=== PATIENT | male | born 1960 | race Caucasian/White ===

== ENCOUNTER 2018-06-06 17:20 | Emergency (ER) | payer BC, OTHER ==
[2018-06-06] MEDS ORDERED: Sodium Chloride 0.9% 1,000 ML IV ONE (17:27)
[2018-06-06] MEDS ORDERED: HYDROmorphone 0.5 MG/0.5 ML SYRINGE IVPUSH STA ×2 (17:29→18:44)
[2018-06-06] MEDS ORDERED: Ondansetron 4 MG/2 ML SDV IVPUSH ONE (17:30)
--- NOTE | 2018-06-06 17:32 | EDM.PDOC ---
ED HPI GENERAL MEDICAL PROBLEM - General Chief Complaint: Trauma Stated Complaint: SHOULDER INJURY Time Seen by Provider: 06/06/18 17:20 Source of Information: Reports: Patient, Significant Other (Girlfriend) History Limitations: Reports: No Limitations - History of Present Illness INITIAL COMMENTS - FREE TEXT/NARRATIVE: The patient states that he fell approximately 9 feet, off his roof onto a dirt surface, just prior to arrival. His fall was not witnessed, but the patient states that he was not strike his head or fall unconscious. He presents with a complaint of pain to his left shoulder and scapular region only. He denies injury elsewhere, although an abrasion over his epigastrium is noted. Treatments SHOE LAY OUT PLANNER: Reports: Other (see below) Other Treatments SHOE LAY OUT PLANNER: none Left Shoulder Pain Score (Numeric/FACES): 10 - Related Data Allergies Allergy/AdvReac Type Severity Reaction Status Date / Time No Known Allergies Allergy Verified 12/25/14 14:43 Home Meds: Home Meds Fenofibrate 160 mg PO DAILY 06/20/14 [History] Nebivolol [Bystolic] 5 mg PO DAILY 06/20/14 [History] Gemfibrozil 600 mg PO DAILY 06/06/18 [History] Sertraline [Zoloft] 100 mg PO DAILY 06/06/18 [History] metFORMIN [Glucophage XR] 500 mg PO BID 06/06/18 [History] Review of Systems - Review of Systems Review Of Systems: ROS reveals no pertinent complaints other than HPI. ED EXAM, GENERAL - Physical Exam Exam: See Below Exam Limited By: No Limitations General Appearance: Alert, WD/WN, Moderate Distress (left shoulder pain) Eye Exam: Bilateral Eye: EOMI, Normal Inspection Ears: Normal External Exam, Hearing Grossly Normal Nose: Normal Inspection Throat/Mouth: Normal Inspection, Normal Lips, Normal Voice, No Airway Compromise Head: Atraumatic, Normocephalic Neck: Normal Inspection, Supple, Non-Tender, Full Range of Motion Respiratory/Chest: No Respiratory Distress, Lungs Clear, Normal Breath Sounds, No Accessory Muscle Use, Chest Non-Tender Cardiovascular: Normal Peripheral Pulses, Regular Rate, Rhythm, No Edema, No Gallop, No JVD, No Murmur, No Rub Peripheral Pulses: 4+: Radial (L), Radial (R) GI/Abdominal: Normal Bowel Sounds, Soft, Non-Tender, No Organomegaly, No Distention, No Abnormal Bruit, No Mass, Other (Linear abrasions over the patient 's epigastrium. Nontender abdomen.) (Male) Exam: Deferred Rectal (Males) Exam: Deferred Back Exam: Normal Inspection, Full Range of Motion, NT Extremities: Normal Capillary Refill, Other (Deformity of the left shoulder, consistent with anterior dislocation. No other visible abnormalities, such as swelling, erythema, ecchymosis, or abrasion. No tenderness to palpation of the left scapula. Neurovascular status of the left upper extremity is intact.) Neurological: Alert, Oriented, CN II-XII Intact, Normal Cognition, Normal Gait ( walked into ED), Normal Reflexes, No Motor/Sensory Deficits Psychiatric: Anxious Skin Exam: Warm, Dry, Intact, Normal Color, No Rash ED TRAUMA PROCEDURES - Joint Reduction Site: Shoulder (L) Sedation: Conscious Sedation (Propfol, per Anesthesia) Pre-Procedure NV Status: Normal Post-Procedure NV Status: Normal Technique: Traction/Counter Traction Number of Attempts: 1 Post-Reduction Imaging: Completely Reduced, Fracture Seen (Hill-Sachs) Joint Reduction Complications: No Course - Vital Signs Last Recorded V/S: Last Vital Signs Temp 36.8 C 06/06/18 19:27 Pulse 59 L 06/06/18 19:27 Resp 20 06/06/18 19:27 BP 117/114 H 06/06/18 19:27 Pulse Ox 94 L 06/06/18 19:27 - Orders/Labs/Meds Labs: Laboratory Tests 06/06/18 06/06/18 06/06/18 Range/Units 17:35 17:35 17:35 WBC 12.55 H (4.23-9.07) K/mm3 RBC 4.85 (4.63-6.08) M/mm3 Hgb 14.4 (13.7-17.5) gm/L Hct 43.4 (40.1-51.0) % MCV 89.5 (79.0-92.2) fl MCH 29.7 (25.7-32.2) pg MCHC 33.2 (32.2-35.5) g/dl RDW Std Deviation 47.1 H (35.1-43.9) fL Plt Count 238 (163-337) K/mm3 MPV 10.9 (9.4-12.3) fl Neutrophils % (Manual) 83 H (40-60) % Band Neutrophils % 0 (0-10) % Lymphocytes % (Manual) 9 L (20-40) % Atypical Lymphs % 0 % Monocytes % (Manual) 6 (2-10) % Eosinophils % (Manual) 1 (0.8-7.0) % Basophils % (Manual) 1 (0.2-1.2) Platelet Estimate Adequate Plt Morphology Comment Normal RBC Morph Comment Normal PT 10.0 (9.5-12.1) SECONDS INR < 0.93 APTT 27 (24-31) SECONDS Sodium 140 (136-145) mEq/L Potassium 4.4 (3.5-5.1) mEq/L Chloride 104 (98-107) mEq/L Carbon Dioxide 24 (21-32) mEq/L Anion Gap 16.4 H (5-15) BUN 25 H (7-18) mg/dL Creatinine 0.9 (0.7-1.3) mg/dL Est Cr Clr Drug Dosing 86.56 mL/min Estimated GFR (MDRD) > 60 (>60) mL/min BUN/Creatinine Ratio 27.8 H (14-18) Glucose 113 H (74-106) mg/dL Calcium 9.7 (8.5-10.1) mg/dL Total Bilirubin 0.3 (0.2-1.0) mg/dL AST 27 (15-37) U/L ALT 31 (16-63) U/L Alkaline Phosphatase 78 (46-116) U/L Total Protein 8.3 H (6.4-8.2) g/dl Albumin 4.5 (3.4-5.0) g/dl Globulin 3.8 gm/dL Albumin/Globulin Ratio 1.2 (1-2) Meds: Medications Discontinued Medications Generic Name Dose Route Start Last Admin Trade Name Keiq PRN Reason Stop Dose Admin Fentanyl Confirm 06/06/18 19:33 Sublimaze Administered 06/06/18 19:34 Dose 100 mcg .ROUTE .STK-MED ONE Hydromorphone HCl 1 mg 06/06/18 17:29 06/06/18 17:43 Dilaudid IVPUSH 06/06/18 17:30 1 mg ONETIME STA Administration Hydromorphone HCl 1 mg 06/06/18 18:44 06/06/18 19:00 Dilaudid IVPUSH 06/06/18 18:45 1 mg ONETIME STA Administration Sodium Chloride 1,000 mls @ 150 mls/hr 06/06/18 17:27 06/06/18 17:42 Normal Saline IV 06/07/18 00:06 150 mls/hr ONETIME ONE Administration Lidocaine HCl Confirm 06/06/18 19:31 Xylocaine-Mpf 1% Administered 06/06/18 19:32 Dose 4 mls @ as directed .ROUTE .STK-MED ONE Iopamidol 150 ml 06/06/18 17:37 06/06/18 17:58 Isovue-300 (61%) IVPUSH 06/06/18 17:38 150 ml ONETIME ONE Administration Midazolam HCl Confirm 06/06/18 19:31 Versed 1 Mg/Ml Administered 06/06/18 19:32 Dose 2 mg .ROUTE .STK-MED ONE Ondansetron HCl 4 mg 06/06/18 17:30 06/06/18 17:47 Zofran IVPUSH 06/06/18 17:31 4 mg ONETIME ONE Administration Propofol Confirm 06/06/18 19:30 Diprivan 20 Ml Administered 06/06/18 19:31 Dose 200 mg .ROUTE .STK-MED ONE - Re-Assessments/Exams Free Text/Narrative Re-Assessment/Exam: 06/06/18 18:39 CT of the chest with IV contrast is read by Dr. Salas as: 1. Dislocated left shoulder in an anterior direction. Small fracture fragment is seen next to the dislocated humeral head, uncertain if this is acute or old. 2. Other incidental findings as noted above. No other acute abnormality is seen on CT study of the chest. CT of the abdomen and pelvis with IV contrast is read by Dr. Salas as: 1. Incidental findings. Nothing acute is appreciated on CT study of the abdomen and pelvis. 06/06/18 18:45 Based on the above findings, I requested that the patient be moved one of the trauma rooms so that we can reduce the shoulder, and that anesthesia be called in. Notified that anesthesia is currently performing an epidural, and that they will come to the ED when they're finished with that. 06/06/18 20:03 Under conscious sedation using propofol per anesthesia, the patient's left shoulder was successfully reduced using the traction/countertraction method. Postreduction range of motion of the shoulder appears to be normal. Postreduction two-view chest radiographs appear to confirm complete reduction. There appears to be a Hill-Sachs fracture of the humeral head. The patient's left arm was subsequently placed in a sling. 06/06/18 20:21 The patient is alert and feeling well. I will discharge him home with recommendation that he take over the counter ibuprofen as needed for discomfort , and I will refer him to Dr. Wade for follow-up. Departure - Departure Time of Disposition: 20:22 Disposition: Home, Self-Care 01 Condition: Good Clinical Impression: Traumatic dislocation of left shoulder, Fall from building - Discharge Information *PRESCRIPTION DRUG MONITORING PROGRAM REVIEWED*: Not Applicable *COPY OF PRESCRIPTION DRUG MONITORING REPORT IN PATIENT TRISTIN: Not Applicable Instructions: Shoulder Dislocation Referrals: Travis Wade MD [Physician] - Forms: ED Department Discharge Additional Instructions: You were seen in the emergency room after falling off your rules and injuring her left shoulder. Workup in the ER included blood work, a CT scan of your chest, abdomen, and pelvis, and x-rays of your left shoulder. Your workup found that you dislocated your left shoulder, and that there may be a small fracture associated with the dislocation. Your shoulder was reduced (put back in place) in the ER, under sedation. Your left arm has been placed into a sling. You should wear this all the time, except when bathing. Take [id number] ibuprofen, 2-3 tablets (400-600 mg) every 8 hours, with food, as needed for pain. Follow-up with the Orthopedic Surgeon Dr. Travis Wade at the next available appointment. If any other problems, please do not hesitate to return to the ER.
[2018-06-06] MEDS ORDERED: Iopamidol 612 MG/ML 150 ML Bottle IVPUSH ONE (17:37)
--- NOTE | 2018-06-06 18:26 | CT ---
CT chest Technique: Multiple axial sections were obtained to the chest. Intravenous contrast was utilized. Findings: Mild atherosclerotic calcification is seen within the thoracic aorta. Mild ectasia of the ascending aorta is seen with AP dimension of 3.8 cm. Coronary artery calcification is seen. Small mediastinal lymph nodes are seen which appear normal. No hilar abnormalities are seen. No pericardial thickening is seen. Lungs are clear with no pulmonary contusion. No pleural effusions or pneumothorax is seen. Bone window settings were reviewed which shows no acute rib fracture. Scoliosis is noted within the spine. Scattered mild degenerative change within the spine is seen. Nothing acute is appreciated within the spine. Dislocated left shoulder is seen in an anterior direction. Small fracture fragment is seen next to the humeral head, uncertain if this is acute or old. Impression: 1. Dislocated left shoulder in an anterior direction. Small fracture fragment is seen next to the dislocated humeral head, uncertain if this is acute or old. 2. Other incidental findings as noted above. No other acute abnormality is seen on CT study of the chest. Diagnostic code #3 CT abdomen and pelvis Technique: Multiple axial sections were obtained from above the dome of the diaphragm inferiorly through the pubic symphysis. Intravenous contrast was utilized. No oral contrast was given. Delayed imaging obtained through the bladder. Comparison: Prior noncontrast CT abdomen and pelvis exam of 12/25/14 is available. Findings: Liver shows no focal parenchymal abnormality. Surgical clips are seen from prior cholecystectomy. Spleen appears within normal limits. Adrenal glands show no nodule. Kidneys show symmetric contrast enhancement. Delayed images shows contrast within nondilated ureters. Pancreas is within normal limits. Aorta shows atherosclerotic calcification without aneurysm. No pelvic mass or adenopathy is seen. No free fluid or inflammatory change is seen. No bowel dilatation is seen. Bone window settings were reviewed which shows mild scattered degenerative change within the spine. No discrete pelvic fracture is seen. Impression: 1. Incidental findings. Nothing acute is appreciated on CT study of the abdomen and pelvis. Diagnostic code #2
[2018-06-06 19:26] VITALS: BP 117/114
--- NOTE | 2018-06-06 19:26 | PCM.PREANE ---
Preanesthetic Assessment - Anesthesia/Transfusion/Family Hx Anesthesia History: Prior Anesthesia Without Reaction Family History of Anesthesia Reaction: No Transfusion History: No Prior Transfusion(s) - Review of Systems General: Fatigue Pulmonary: No Symptoms Cardiovascular: No Symptoms Gastrointestinal: No Symptoms Neurological: Numbness (left shoulder) Other: Reports: Diabetes (pre diabetic) - Physical Assessment NPO Status Date: 06/06/18 NPO Status Time: 14:00 Pulse: 59 O2 Sat by Pulse Oximetry: 94 Respiratory Rate: 20 Blood Pressure: 117/114 Temperature: 36.8 C Vital Signs: Last Vital Signs Temp 36.8 C 06/06/18 17:36 Pulse 88 06/06/18 17:36 Resp 20 06/06/18 17:36 BP 173/114 H 06/06/18 17:36 Pulse Ox 94 L 06/06/18 17:36 Height: 1.73 m Weight: 90.718 kg ASA Class: 2 Mental Status: Alert & Oriented x3 Dentition: Reports: Normal Dentition, [place](s) Thyro-Mental Finger Breadths: 3 Mouth Opening Finger Breadths: 3 ROM/Head Extension: Full Lungs: Clear to Auscultation, Normal Respiratory Effort Cardiovascular: Regular Rate, Regular Rhythm - Lab Values: Laboratory Last Values WBC 12.55 K/mm3 (4.23-9.07) H 06/06/18 17:35 RBC 4.85 M/mm3 (4.63-6.08) 06/06/18 17:35 Hgb 14.4 gm/L (13.7-17.5) 06/06/18 17:35 Hct 43.4 % (40.1-51.0) 06/06/18 17:35 MCV 89.5 fl (79.0-92.2) 06/06/18 17:35 MCH 29.7 pg (25.7-32.2) 06/06/18 17:35 MCHC 33.2 g/dl (32.2-35.5) 06/06/18 17:35 RDW Std Deviation 47.1 fL (35.1-43.9) H 06/06/18 17:35 Plt Count 238 K/mm3 (163-337) 06/06/18 17:35 MPV 10.9 fl (9.4-12.3) 06/06/18 17:35 Neutrophils % (Manual) 83 % (40-60) H 06/06/18 17:35 Band Neutrophils % 0 % (0-10) 06/06/18 17:35 Lymphocytes % (Manual) 9 % (20-40) L 06/06/18 17:35 Atypical Lymphs % 0 % 06/06/18 17:35 Monocytes % (Manual) 6 % (2-10) 06/06/18 17:35 Eosinophils % (Manual) 1 % (0.8-7.0) 06/06/18 17:35 Basophils % (Manual) 1 (0.2-1.2) 06/06/18 17:35 Platelet Estimate Adequate 06/06/18 17:35 Plt Morphology Comment Normal 06/06/18 17:35 RBC Morph Comment Normal 06/06/18 17:35 PT 10.0 SECONDS (9.5-12.1) 06/06/18 17:35 INR < 0.93 06/06/18 17:35 APTT 27 SECONDS (24-31) 06/06/18 17:35 Sodium 140 mEq/L (136-145) 06/06/18 17:35 Potassium 4.4 mEq/L (3.5-5.1) 06/06/18 17:35 Chloride 104 mEq/L (98-107) 06/06/18 17:35 Carbon Dioxide 24 mEq/L (21-32) 06/06/18 17:35 Anion Gap 16.4 (5-15) H 06/06/18 17:35 BUN 25 mg/dL (7-18) H 06/06/18 17:35 Creatinine 0.9 mg/dL (0.7-1.3) 06/06/18 17:35 Est Cr Clr Drug Dosing 86.56 mL/min 06/06/18 17:35 Estimated GFR (MDRD) > 60 mL/min (>60) 06/06/18 17:35 BUN/Creatinine Ratio 27.8 (14-18) H 06/06/18 17:35 Glucose 113 mg/dL (74-106) H 06/06/18 17:35 Calcium 9.7 mg/dL (8.5-10.1) 06/06/18 17:35 Total Bilirubin 0.3 mg/dL (0.2-1.0) 06/06/18 17:35 AST 27 U/L (15-37) 06/06/18 17:35 ALT 31 U/L (16-63) 06/06/18 17:35 Alkaline Phosphatase 78 U/L (46-116) 06/06/18 17:35 Total Protein 8.3 g/dl (6.4-8.2) H 06/06/18 17:35 Albumin 4.5 g/dl (3.4-5.0) 06/06/18 17:35 Globulin 3.8 gm/dL 06/06/18 17:35 Albumin/Globulin Ratio 1.2 (1-2) 06/06/18 17:35 - Allergies Allergies/Adverse Reactions: Allergies Allergy/AdvReac Type Severity Reaction Status Date / Time No Known Allergies Allergy Verified 12/25/14 14:43 - Blood Blood Available: No Product(s) Available: None - Anesthesia Plan Pre-Op Medication Ordered: None - Acknowledgements Anesthesia Type Planned: MAC Pt an Appropriate Candidate for the Planned Anesthesia: Yes Alternatives and Risks of Anesthesia Discussed w Pt/Guardian: Yes Pt/Guardian Understands and Agrees with Anesthesia Plan: Yes PreAnesthesia Questionnaire Cardiovascular History: Reports: High Cholesterol, Hypertension Gastrointestinal History: Reports: GERD, Hiatal Hernia Endocrine/Metabolic History: Reports: Diabetes, Type II - Past Surgical History GI Surgical History: Reports: Cholecystectomy - SUBSTANCE USE Smoking Status *Q: Never Smoker Recreational Drug Use History: No - HOME MEDS Home Medications: Home Meds Fenofibrate 160 mg PO DAILY 06/20/14 [History] Nebivolol [Bystolic] 5 mg PO DAILY 06/20/14 [History] Gemfibrozil 600 mg PO DAILY 06/06/18 [History] Sertraline [Zoloft] 100 mg PO DAILY 06/06/18 [History] metFORMIN [Glucophage XR] 500 mg PO BID 06/06/18 [History] - CURRENT (IN HOUSE) MEDS Current Meds: Current Medications Sodium Chloride (Normal Saline) 1,000 mls @ 150 mls/hr IV ONETIME ONE Stop: 06/07/18 00:06 Last Admin: 06/06/18 17:42 Dose: 150 mls/hr Discontinued Medications Hydromorphone HCl (Dilaudid) 1 mg IVPUSH ONETIME STA Stop: 06/06/18 17:30 Last Admin: 06/06/18 17:43 Dose: 1 mg Hydromorphone HCl (Dilaudid) 1 mg IVPUSH ONETIME STA Stop: 06/06/18 18:45 Last Admin: 06/06/18 19:00 Dose: 1 mg Iopamidol (Isovue-300 (61%)) 150 ml IVPUSH ONETIME ONE Stop: 06/06/18 17:38 Last Admin: 06/06/18 17:58 Dose: 150 ml Ondansetron HCl (Zofran) 4 mg IVPUSH ONETIME ONE Stop: 06/06/18 17:31 Last Admin: 06/06/18 17:47 Dose: 4 mg
[2018-06-06] MEDS ORDERED: Propofol 200 MG/20 ML SDV ONE (19:30)
[2018-06-06] MEDS ORDERED: Midazolam 1 MG/ML 2 ML SDV ONE (19:31)
[2018-06-06] MEDS ORDERED: Lidocaine 1% 4 ML ONE (19:31)
[2018-06-06] MEDS ORDERED: fentaNYL 100 MCG/2 ML SDV ONE (19:33)
--- NOTE | 2018-06-07 07:46 | CR ---
Left shoulder: Two views of the left shoulder obtained. Comparison: Prior chest CT performed earlier on same day (5:54 PM). Previous dislocation appears to have been reduced. Small Hill-Sachs deformity is noted. Inferior spurring seen within the acromioclavicular joint. Soft tissue swelling is present. Impression: 1. Previous dislocation has been reduced. 2. Other incidental findings as noted above. Diagnostic code #2.
== END 2018-06-06 21:00 | disposition home or self-care (01) ==
LOC: JD.ED 17:20
DX: S43.015A Anterior dislocation of left humerus, initial encounter (principal); Z79.899 Other long term (current) drug therapy; W13.9XXA Fall from, out of or through building, not otherwise specified, initial encounter
CPT/HCPCS: 23650; 36415; 71260; 73030; 74177; 80053; 85007; 85027; 85610; 85730; 96361; 96374; 96375; 96376; 99152; 99153; 99284; J1170; J2250; J2405; J2704; J3010; J7040; Q9967; 01620; J2001

== ENCOUNTER 2021-11-03 08:46 | Day surgery (SDC) | payer OTHER ==
[~2021-11-03 08:46] MED LIST: Lactated Ringers 1,000 ML IV SCH; Lidocaine 1%/Sod Bicarbonate in NS 8.4% 1 ML Syringe IDERM PRN; Sodium Chloride 0.9% 10 ML Syringe FLUSH PRN; Sodium Chloride 0.9% 10 ML Syringe FLUSH SCH
[2021-11-03] MEDS ORDERED: Propofol 200 MG/20 ML SDV ONE (09:54)
[2021-11-03] MEDS ORDERED: Lidocaine 1% 4 ML ONE (09:54)
[2021-11-03 12:42] VITALS: BP 121/85; PULSE 74
== END 2021-11-03 12:16 | disposition home or self-care (01) ==
LOC: JD.SDS 08:46
PROVIDERS: ATTEND Surgery
DX: D12.3 Benign neoplasm of transverse colon (principal); D12.8 Benign neoplasm of rectum; K57.30 Diverticulosis of large intestine without perforation or abscess without bleeding; I10 Essential (primary) hypertension; E78.5 Hyperlipidemia, unspecified; K21.9 Gastro-esophageal reflux disease without esophagitis; F17.210 Nicotine dependence, cigarettes, uncomplicated; E11.9 Type 2 diabetes mellitus without complications; Z79.84 Long term (current) use of oral hypoglycemic drugs; Z90.49 Acquired absence of other specified parts of digestive tract; Z98.890 Other specified postprocedural states; Z79.899 Other long term (current) drug therapy
CPT/HCPCS: 45385; J2704; J7120; 00811